=== PATIENT | male | born 1940 | race African-American/Black ===

== ENCOUNTER 2017-08-23 16:36 | Emergency (ER) | payer BC ==
--- NOTE | 2017-08-23 16:53 | PDOC ---
Rapid Medical Evaluation Time Seen by Provider: 08/23/17 16:46 Medical Evaluation: 08/23/17 16:51 I have performed a brief in-person evaluation of this patient. The patient presents with a chief complaint of: Cough, fever of 102 and generalized weakness x 2 days. H/o DM, HTN Pertinent physical exam findings:Febrile and tachy I have ordered the following:tylenol/flu/cxr The patient will proceed to the ED for further evaluation. 08/23/17 16:55
[2017-08-23] MEDS ORDERED: ACETAMINOPHEN 325 MG TABLET (FP) PO ONE (16:54)
[2017-08-23 16:58] VITALS: BP 143/82; TEMP 100.8; BMI 32.1
[2017-08-23 18:20] VITALS: PULSE 100
--- NOTE | 2017-08-23 18:20 | PDOC ---
History of Present Illness - General Chief Complaint: Weakness Stated Complaint: FATIGUE Time Seen by Provider: 08/23/17 16:46 History Source: Patient, Family Exam Limitations: No Limitations - History of Present Illness Initial Comments: 08/23/17 18:17 Patient is a 77-year-old male history of prostate cancer, hypertension, high cholesterol, presents with fever, tachycardia, generalized weakness for 2 days. Patient was recently seen at urology and PMD, started on Levaquin for "issue of prostate". Patient is ambulatory, able to eat and drink without difficulty. Past Medical History: [Denies]. Allergies: No known allergies Medications: [See medication list] Family History: Non-contributory Social History: Denies smoking, alcohol use, or IVDU Review of Systems GENERAL/CONSTITUTIONAL: [Fever and weakness. No weakness. No weight change.] HEAD, EYES, EARS, NOSE AND THROAT: [No change in vision. No ear pain or discharge. No sore throat. ] CARDIOVASCULAR: [No chest pain or shortness of breath.] RESPIRATORY: [No cough, wheezing, or hemoptysis.] GASTROINTESTINAL: [No nausea, vomiting, diarrhea or constipation. No rectal bleeding.] GENITOURINARY: [No dysuria, frequency, or change in urination.] MUSCULOSKELETAL: [No joint or muscle swelling or pain. No neck or back pain.] SKIN AND BREASTS: [No rash or easy bruising.] NEUROLOGIC: [No headache, vertigo, loss of consciousness, or loss of sensation.] PSYCHIATRIC: [No depression or anxiety.] ENDOCRINE: [No increased thirst. No abnormal weight change.] HEMATOLOGIC/LYMPHATIC: [No anemia, easy bleeding, or history of blood clots.] ALLERGIC/IMMUNOLOGIC: [No hives or skin allergy. No latex allergy.] Physical Exam: GENERAL: [The patient is awake, alert, and fully oriented, in no acute distress. ] HEAD: [Normal with no signs of trauma.] EYES: [Pupils equal, round and reactive to light, extraocular movements intact, sclera anicteric, conjunctiva clear.] ENT: [Ears normal, nares patent, oropharynx clear without exudates. Moist mucous membranes. No uvula deviation] NECK: [Normal range of motion, supple without lymphadenopathy, JVD, or masses.] LUNGS: [Breath sounds equal, clear to auscultation bilaterally. No wheezes, and no crackles.] HEART: [Regular rate and rhythm, normal S1 and S2 without murmur, rub or gallop. ] ABDOMEN: [Soft, nontender, normoactive bowel sounds. No guarding, no rebound. No masses. No bruising or abrasions] MUSCULOSKELETAL: [Normal range of motion, no edema. No clubbing or cyanosis. No cords, erythema, or tenderness. No CVA Tenderness with fist.] NEUROLOGICAL: [Cranial nerves II through XII grossly intact. Normal speech, normal gait.] PSYCH: [Normal mood, normal affect.] SKIN: [Warm, Dry, normal turgor, no rashes or lesions noted.] Past History - Past Medical History Allergies/Adverse Reactions: Allergies Allergy/AdvReac Type Severity Reaction Status Date / Time No Known Allergies Allergy Verified 08/23/17 16:51 Home Medications: Ambulatory Orders Metformin HCl 500 mg PO ASDIR 08/23/17 Metoprolol Succinate [Toprol XL -] 50 mg PO DAILY 08/23/17 Oseltamivir Phosphate [Tamiflu -] 75 mg PO BID #10 capsule 08/23/17 Simvastatin 40 mg PO ASDIR 08/23/17 Tamsulosin HCl 0.4 mg PO ASDIR 08/23/17 COPD: No Diabetes: Yes (NIDM) HTN: Yes Hypercholesterolemia: Yes - Surgical History Abdominal Surgery: Yes (right ingunial) Appendectomy: Yes - Immunization History Immunization Up to Date: Yes - Suicide/Smoking/Psychosocial Hx Smoking History: Never smoked Information on smoking cessation initiated: No Hx Alcohol Use: No Drug/Substance Use Hx: No Substance Use Type: None *Physical Exam - Vital Signs Last Vital Signs Temp Pulse Resp BP Pulse Ox 100.8 F H 106 H 17 143/82 98 08/23/17 16:52 08/23/17 16:52 08/23/17 16:52 08/23/17 16:52 08/23/17 16:52 ED Treatment Course - ADDITIONAL ORDERS Additional order review: 08/23/17 17:01 Influenza Types A,B Antigen (TATA) - Preliminary Nasopharyngeal Swab - Preliminary - Medications Given in the ED: ED Medications Discontinued Medications Generic Name Dose Route Start Last Admin Trade Name Freq PRN Reason Stop Dose Admin Acetaminophen 650 mg 08/23/17 16:54 08/23/17 17:01 Tylenol - PO 08/23/17 16:55 650 mg ONCE ONE Administration Medical Decision Making - Medical Decision Making 08/23/17 18:18 A/P: Patient here with fever, upon assessment fever is controlled at 98.7 rapid influenza was sent and patient is influenza A positive we'll discharge patient on Tamiflu patient to continue his Levaquin as previously prescribed follow-up with PMD in 3 days for evaluation. If any increased weakness, chest pain, shortness of breath, increased cough, or any other concerns patient to return immediately to ER. Increase fluid intake. *DC/Admit/Observation/Transfer Diagnosis at time of Disposition: Influenza A - Discharge Dispostion Disposition: HOME Condition at time of disposition: Stable Admit: No - Prescriptions Prescriptions: Oseltamivir Phosphate [Tamiflu -] 75 mg PO BID #10 capsule - Referrals Referrals: Radha Sheikh [Primary Care Provider] - - Patient Instructions Printed Discharge Instructions: Influenza (Alternative Therapy) Additional Instructions: You have been diagnosed with influenza a. Please take the medication as directed. You are contagious. Please attempt to avoid contact of multiple individuals as this will cause the infection to spread. Return to emergency room if shortness of breath, wheezing, fever greater than 101, chest pain, or fainting occurs. - Post Discharge Activity
== END 2017-08-23 18:21 | disposition home or self-care (01) ==
LOC: JERFT 16:36
DX: J09.X2 Influenza due to identified novel influenza A virus with other respiratory manifestations (principal); Z85.46 Personal history of malignant neoplasm of prostate; I10 Essential (primary) hypertension; E78.00 Pure hypercholesterolemia, unspecified
CPT/HCPCS: 71046-TC; 87804; 99281-25